=== PATIENT | female | born 2005 | race Caucasian/White ===

== ENCOUNTER 2024-04-12 22:06 | Emergency (ER) | payer OTHER ==
[2024-04-12] MEDS ORDERED: NA CHLORIDE 0.9% 1,000 ML ONE (23:20)
[2024-04-12] MEDS ORDERED: ACETAMINOPHEN 325 MG TABLET ONE (23:20)
[2024-04-12 23:33] LABS: Specific Gravity 1.016 (1.005-1.030)
[2024-04-12 23:37] LABS: Urine Bacteria <20 /HPF (<20); Urine Culture Reflex Order REFLEXED; Urine Microscopic Reflex YN ORDER UMIC; Urine Mucus Slight /HPF (None Seen); Urine RBC <5 /HPF (None Seen)
[2024-04-12 23:38] LABS: Specific Gravity 1.016 (1.005-1.030); Urine Bilirubin NEGATIVE (Negative); Urine Blood Negative (Negative); Urine Clarity Extremely Turbid (Clear); Urine Color Light-Yellow (Yellow); Urine Glucose NEGATIVE (Negative); Urine Ketones 1+ (Negative); Urine Nitrite NEGATIVE (Negative); Urine Protein TRACE (Negative); Urine Urobilinogen Normal (Normal); Urine pH 7.5 (5.0-7.0)
[2024-04-12 23:40] LABS: Absolute Lymphocytes (CBC) 1.6 K/uL (0.7-4.9); Absolute Monocytes 0.4 K/uL (0.1-1.3); Basophils % 0.5 % (0-1.3); Eosinophils % 0.8 % (0-4.4); Hematocrit 31.3 % (36.0-45.0); Hemoglobin 10.6 g/dL (12.0-15.0); Lymphocytes % 31.4 % (15.3-44.8); MCH 26.8 pg (27.0-35.0); MCHC 33.9 g/dL (32.0-36.0); MCV 79.2 fL (80-100); MPV 8.9 fL (7.6-11.3); Monocytes % 8.7 % (3.3-12.3); Neutrophils % 58.6 % (41.7-73.7); Nucleated Red Blood Cells % 0.1 % (0-0); Platelets 216 thou/uL (152-406); RBC Red Blood Cell Count 3.96 M/uL (3.86-4.86); Red Cell Distribution Width 18.8 % (12.1-15.2)
[2024-04-13 00:07] LABS: Anion Gap 10.4 mEq/L (5.0-15.0); Potassium 3.4 mEq/L (3.5-5.1)
--- NOTE | 2024-04-13 01:20 | RAD REPORT ---
EXAM: US , Limited CLINICAL HISTORY: The patient is 18 years old and is Female; ABD CRAMPING, TECHNIQUE: Real-time limited ultrasound of the maternal uterus with image documentation. COMPARISON: No relevant prior studies available. FINDINGS: POSITION: A single intrauterine gestation is present. Gestational age is 15 weeks 3 days based on ultrasound composite. heart rate 140 bpm. presentation is breech. PLACENTA: The placenta is posterior in location. CERVIX: The cervix is closed measuring 3.3 cm. ADNEXA: Unremarkable. No adnexal mass is seen. FREE FLUID: There is no free fluid. IMPRESSION: Single IUP at 15 weeks 3 days with heart rate 140 bpm. Electronically signed by: Waleska Varela MD 04/13/2024 01:16 AM CDT RP Due to temporary technical issues with the PACS/iGlue scribe reporting system, reports are being signed by the in-house radiologist without review as a courtesy to ensure prompt reporting the interpreting radiologist is fully responsible for the content of the report. Transcribed Date/Time: 04/13/2024 1:20 AM
[2024-04-13] MEDS ORDERED: NITROFURAN MACRO 100 MG CAP PO ONE (01:22)
[2024-04-13] MEDS ORDERED: POTASSIUM 25 MEQ EFFERV TAB ONE (01:22)
--- NOTE | 2024-04-13 01:39 | EDPHYS ---
Physician Documentation [facility] Name: Cecelia Boyd Age: 18 yrs Sex: Female : 2005 Arrival Date: 04/12/2024 Time: 22:06 Bed 6 Private MD: ED Physician Tristan Nathan HPI: 04/12 23:00 This 18 yrs old Female presents to ER via Ambulatory with complaints of EST 15 WKS cp GESTATION, Pelvic Pain, Vaginal Discharge. 23:00 The patient presents to the emergency department with abdominal pain, of the right cp upper quadrant and right lower quadrant, that started yesterday, described as crampy, vaginal discharge but does not feel like it is unusual. 23:00 course: care: private OB physician, Leakage of Fluid: none cp appreciated, Ultrasound: the patient had an ultrasound. Previous pregnancies: the patient has never been . Associated signs and symptoms: Pertinent negatives: diarrhea, fever, nausea, vomiting. 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 - Infectious Disease History:: Denies. - Social history:: Smoking status: Patient denies any tobacco usage or history of. ROS: 23:05 Constitutional: Negative for body aches, chills, fever, poor PO intake, cp 23:05 Abdomen/GI: Positive for abdominal cramps, Negative for vomiting, diarrhea, constipation, 23:05 Eyes: Negative for injury, pain, redness, and discharge, cp 23:05 ENT: Negative for drainage from ear(s), ear pain, sore throat, difficulty swallowing, difficulty handling secretions, 23:05 Cardiovascular: Negative for chest pain, edema, palpitations, 23:05 Respiratory: Negative for cough, shortness of breath, wheezing, 23:05 : Positive for vaginal discharge, Negative for urinary symptoms, vaginal bleeding, 23:05 Neuro: Negative for altered mental status, dizziness, headache, syncope, weakness, 23:05 All other systems are negative, Exam: 23:10 Constitutional: The patient appears in no acute distress, alert, awake, non-toxic, well cp developed, well nourished, 23:10 Head/Face: Normocephalic, atraumatic. cp 23:10 Eyes: Periorbital structures: appear normal, Conjunctiva: normal, no exudate, no injection, Sclera: no appreciated abnormality, Lids and lashes: appear normal, bilaterally, 23:10 ENT: External ear(s): are unremarkable, Nose: is normal, Mouth: Lips: moist, Oral mucosa: moist, Posterior pharynx: Airway: no evidence of obstruction, patent, 23:10 Chest/axilla: Inspection: normal, 23:10 Cardiovascular: Rate: normal, Rhythm: regular, 23:10 Respiratory: the patient does not display signs of respiratory distress, Respirations: normal, no use of accessory muscles, no retractions, labored breathing, is not present, 23:10 Abdomen/GI: Inspection: gravid appearance, is noted, Bowel sounds: active, all quadrants, Palpation: soft, in all quadrants, mild abdominal tenderness, in the right upper quadrant and right lower quadrant, rebound tenderness, is not appreciated, involuntary guarding, is not appreciated, 23:10 Back: CVA tenderness, is absent, 23:10 Neuro: Orientation: to person, place \T\ time. Mentation: is normal, Motor: moves all fours, strength is normal, Sensation: is normal, Gait: is steady, at a normal pace, without difficulty, Vital Signs: 22:39 BP 110 / 81; Pulse 98; Resp 14; Temp 98; Pulse Ox 98% ; Weight 48.08 kg; Height 4 ft. 9 vc1 in. ; 23:51 BP 119 / 80; Pulse 78; Resp 16; Pulse Ox 100% ; dd2 04/13 02:22 BP 112 / 75; Pulse 76; Resp 16; Temp 98.2; Pulse Ox 100% ; dd2 04/12 22:39 Body Mass Index 22.94 (48.08 kg, 144.78 cm) vc1 Emilee Coma Score: 04/12 23:51 Eye Response: spontaneous(4). Motor Response: obeys commands(6). Verbal Response: dd2 oriented(5). Total: 15. MDM: 04/13 01:39 Medical Screening Exam initiated 01:39 Data reviewed: vital signs, nurses notes, lab test result(s), radiologic studies, cp ultrasound, and as a result, I will discharge patient. 01:39 Differential diagnosis: STD, ectopic . I considered the following discharge cp prescriptions or medication management in the emergency department Medications were administered in the Emergency Department. See MAR. Counseling: I had a detailed discussion with the patient and/or guardian regarding the historical points, exam findings, and any diagnostic results supporting the discharge/admit diagnosis, lab results, radiology results, the need for outpatient follow up, an OB/Gyne specialist, to return to the emergency department if symptoms worsen or persist or if there are any questions or concerns that arise at home. Response to treatment: the patient's symptoms have mildly improved after treatment, and as a result, I will discharge patient. 04/12 22:51 Order name: Abo/rh Typing; Complete Time: 01: 04/12 22:51 Order name: Basic Metabolic Panel; Complete Time: : 04/13 01:09 Interpretation: Normal except: K 3.4; CRE 0.44. 04/12 22:51 Order name: CBC with Diff; Complete Time: : 04/13 01:09 Interpretation: Normal except: HGB 10.6; HCT 31.3; MCV 79.2; MCH 26.8; RDW 18.8. 04/12 22:51 Order name: Test, Urine; Complete Time: : 04/12 22:51 Order name: Quantitative Hcg; Complete Time: : 04/13 01:09 Interpretation: Reviewed. 04/12 22:51 Order name: Urinalysis w/ reflexes; Complete Time: 01: 04/13 01:10 Interpretation: Normal except: [facility] Extremely Turbid; UKET 1+; UPH 7.5; UPROT TRACE; cp UESTR 500; UWBC 10-20. 04/12 22:51 Order name: Lipase; Complete Time: 01: 04/12 23:43 Order name: Urine Culture EDMS 04/12 22:51 Order name: US OB Limited 04/12 22:51 Order name: IV Saline Lock; Complete Time: 23:50 cp 04/12 22:51 Order name: Labs collected and sent; Complete Time: 23:50 cp 04/12 22:51 Order name: NPO; Complete Time: 23:50 cp Administered Medications: 04/12 23:41 Drug: Acetaminophen PO 650 mg PO once Route: PO; dd2 04/13 00:11 Follow up: Response: No adverse reaction dd2 04/12 23:41 Drug: NS 0.9% IV 500 ml 500 ml IV at 1 bolus once; to be given as a bolus over 30 dd2 minutes Volume: 500 ml; Route: IV; Rate: 1 bolus; Site: right antecubital; 23:56 Follow up: Response: No adverse reaction dd2 04/13 00:56 Follow up: Response: No adverse reaction; IV Status: Completed infusion; IV Intake: dd2 1000ml 01:27 Drug: Potassium PO Effervescent Tablet 25 mEq PO once; dissolve in 4 ounces of water or al5 juice Route: PO; 01:57 Follow up: Response: No adverse reaction dd2 01:27 Drug: Nitrofurantoin PO 100 mg PO once; administer with food Route: PO; al5 01:57 Follow up: Response: No adverse reaction dd2 Disposition Summary: 04/13/24 01:39 Discharge Ordered Notes: Location: Home cp Problem: new cp Symptoms: have improved cp Condition: Stable cp Diagnosis - Other specified related conditions, second trimester cp - Abdominal pain, unspecified cp - UTI/ Urinary tract infection, site not specified cp - Hypokalemia cp Followup: cp - With: Private Physician - When: 2 - 3 days - Reason: Worsening of condition Discharge Instructions: - Discharge Summary Sheet cp - Abdominal Pain During cp - Urinary Tract Infection, Adult cp - Hypokalemia cp Forms: - Medication Reconciliation Form cp - Antibiotic Education cp - Prescription Opioid Use cp - Patient Portal Instructions cp - Leadership Thank You Letter cp Prescriptions: - Macrobid 100 mg Oral Capsule - take 1 capsule ORAL route every 12 hours for 7 days; 14 capsule; Refills: 0, cp Product Selection Permitted Addendum: 04/14/2024 11:25 I was immediately available on-site in the Emergency Department for consultation in the m s3 care of the patient. Signatures: Dispatcher [employer] EDMS Tez King PA PA cp Sims, Marcus, DO DO ms3 Angelia Fuchs RN RN vc1 Elva Le, RN RN al5 CECELIA YANCEY, RN RN dd2
--- NOTE | 2024-04-13 01:39 | ER ---
Nurse's Notes [facility] Name: Cecelia Boyd Age: 18 yrs Sex: Female : 2005 Arrival Date: 04/12/2024 Time: 22:06 Bed 6 Private MD: Diagnosis: Other specified related conditions, second trimester;Abdominal pain, unspecified;UTI/ Urinary tract infection, site not specified;Hypokalemia Presentation: 04/12 22:35 Chief complaint: Patient states: sharp pain and cramping for greater than 24hours. vc1 22:39 Coronavirus screen: Client denies travel out of the [place] in the last 14 days. At this vc1 time, the client does not indicate any symptoms associated with coronavirus-19. Ebola Screen: Patient negative for fever greater than or equal to 101.5 degrees Fahrenheit, and additional compatible Ebola Virus Disease symptoms Patient denies exposure to infectious person. Patient denies travel to an Ebola-affected area in the 21 days before illness onset. No symptoms or risks identified at this time. Initial Sepsis Screen: Does the patient meet any 2 criteria? No. Patient's initial sepsis screen is negative. Does the patient have a suspected source of infection? No. Patient's initial sepsis screen is negative. Risk Assessment: Do you want to hurt yourself or someone else? Patient reports no desire to harm self or others. Onset of symptoms was April 11, 2024. Care prior to arrival: None. 22:39 Method Of Arrival: Ambulatory vc1 22:39 Acuity: CRISTOPHER 3 vc1 Triage Assessment: 22:45 General: Appears in no apparent distress. comfortable, slender, well groomed, well vc1 developed, well nourished, Behavior is calm, cooperative, appropriate for age. Pain: Complains of pain in pelvis. EENT: No deficits noted. No signs and/or symptoms were reported regarding the EENT system. Neuro: Level of Consciousness is awake, alert, obeys commands, Oriented to person, place, time, situation, Appropriate for age. Cardiovascular: No deficits noted. Respiratory: Airway is patent Respiratory effort is even, unlabored, Respiratory pattern is regular, symmetrical. GI: No deficits noted. No signs and/or symptoms were reported involving the gastrointestinal system. : Reports vaginal discharge Denies vaginal bleeding. Derm: No deficits noted. No signs and/or symptoms reported regarding the dermatologic system. Musculoskeletal: Circulation, motion, and sensation intact. Range of motion: intact in all extremities. 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 - Infectious Disease History:: Denies. - Social history:: Smoking status: Patient denies any tobacco usage or history of. Screenin:42 [facility] ED Fall Risk Assessment (Adult) History of falling in the last 3 months, vc1 including since admission No falls in past 3 months (0 pts) Confusion or Disorientation No (0 pts) Intoxicated or Sedated No (0 pts) Impaired Gait No (0 pts) Mobility Assist Device Used No (0 pt) Altered Elimination No (0 pt) Score/Fall Risk Level 0 - 2 = Low Risk Oriented to surroundings, Maintained a safe environment, Educated pt \T\ family on fall prevention, incl call for assistance when getting out of bed. Abuse screen: Denies threats or abuse. Nutritional screening: No deficits noted. Tuberculosis screening: No symptoms or risk factors identified. Assessment: 23:51 General: Appears in no apparent distress. Behavior is calm, cooperative, appropriate dd2 for age. Pain: Complains of pain in suprapubic area, right lower quadrant and left lower quadrant Pain currently is 7 out of 10 on a pain scale. Quality of pain is described as crampy. Neuro: Level of Consciousness is awake, alert, obeys commands, Oriented to person, place, time, situation, Appropriate for age. Cardiovascular: Denies chest pain, Patient's skin is warm and dry. Respiratory: Airway is patent Respiratory effort is even, unlabored, Respiratory pattern is regular, symmetrical. GI: Abdomen is non-distended, Abd is soft and non tender Reports lower abdominal pain. : No signs and/or symptoms were reported regarding the genitourinary system. Urine is cloudy, Reports cramping, suprapubic area. EENT: No deficits noted. No signs and/or symptoms were reported regarding the EENT system. EENT:. Derm: No deficits noted. No signs and/or symptoms reported regarding the dermatologic system. Skin is healthy with good turgor. Musculoskeletal: No deficits noted. No signs and/or symptoms reported regarding the musculoskeletal system. Circulation, motion, and sensation intact. Range of motion:. Vital Signs: 22:39 BP 110 / 81; Pulse 98; Resp 14; Temp 98; Pulse Ox 98% ; Weight 48.08 kg; Height 4 ft. 9 vc1 in. ; 23:51 BP 119 / 80; Pulse 78; Resp 16; Pulse Ox 100% ; dd2 04/13 02:22 BP 112 / 75; Pulse 76; Resp 16; Temp 98.2; Pulse Ox 100% ; dd2 04/12 22:39 Body Mass Index 22.94 (48.08 kg, 144.78 cm) vc1 Emilee Coma Score: 04/12 23:51 Eye Response: spontaneous(4). Motor Response: obeys commands(6). Verbal Response: dd2 oriented(5). Total: 15. ED Course: 22:08 Patient arrived in ED. [id number] 22:11 Tez King PA is PHCP. cp 22:11 Tristan Nathan DO is Attending Physician. cp 22:41 Triage completed. vc1 22:42 Arm band placed on right wrist. vc1 22:45 Patient has correct armband on for positive identification. Bed in low position. Call vc1 light in reach. Pulse ox on. NIBP on. 22:54 CECELIA YANCEY, RN is Primary Nurse. dd2 23:20 Door closed. Noise minimized. Warm blanket given. Pillow given. Verbal reassurance dd2 given. 23:20 Initial lab(s) drawn, by me, sent to lab. Urine collected: clean catch specimen, dd2 cloudy. Inserted saline lock: 20 gauge in right antecubital area, using aseptic technique. Blood collected. Flushed with 10 mL NS. Patient maintains SpO2 saturation greater than 95% on room air. 23:51 Provided Education on: call light, medications, labs/radiology procedures and result dd2 wait times. 23:51 No provider procedures requiring assistance completed. dd2 23:54 US OB Limited In Process Unspecified. EDMS 04/13 02:22 IV discontinued, intact, bleeding controlled, No redness/swelling at site. Pressure dd2 dressing applied. Administered Medications: 04/12 23:41 Drug: Acetaminophen PO 650 mg PO once Route: PO; dd2 04/13 00:11 Follow up: Response: No adverse reaction dd2 04/12 23:41 Drug: NS 0.9% IV 500 ml 500 ml IV at 1 bolus once; to be given as a bolus over 30 dd2 minutes Volume: 500 ml; Route: IV; Rate: 1 bolus; Site: right antecubital; 23:56 Follow up: Response: No adverse reaction dd2 04/13 00:56 Follow up: Response: No adverse reaction; IV Status: Completed infusion; IV Intake: dd2 1000ml 01:27 Drug: Potassium PO Effervescent Tablet 25 mEq PO once; dissolve in 4 ounces of water or al5 juice Route: PO; 01:57 Follow up: Response: No adverse reaction dd2 01:27 Drug: Nitrofurantoin PO 100 mg PO once; administer with food Route: PO; al5 01:57 Follow up: Response: No adverse reaction dd2 Medication: 04/12 22:43 VIS not applicable for this client. vc1 Intake: 04/13 00:56 IV: 1000ml; Total: 1000ml. dd2 Outcome: 01:39 Discharge ordered by . cp 02:22 Discharged to home ambulatory, dd2 02:22 Condition: stable 02:22 Discharge instructions given to patient, Instructed on discharge instructions, follow up and referral plans. medication usage, Demonstrated understanding of instructions, follow-up care, medications, Prescriptions given X 1, 02:23 Patient left the ED. dd2 Signatures: Dispatcher [employer] EDMT Tez King PA PA cp Jeffries, Jennifer [id number] Angelia Fuchs RN RN vc1 Elva Le RN RN al5 CECELIA YANCEY RN RN dd2
[2024-04-13 08:12] VITALS: O2SAT 100
[2024-04-13 08:19] VITALS: BP 112/75; TEMP 98.2
== END 2024-04-13 02:23 | disposition home or self-care (01) ==
LOC: ER 22:06
DX: O23.42 Unspecified infection of urinary tract in pregnancy, second trimester (principal); N39.0 Urinary tract infection, site not specified; O99.282 Endocrine, nutritional and metabolic diseases complicating pregnancy, second trimester; E87.6 Hypokalemia; Z3A.15 15 weeks gestation of pregnancy
CPT/HCPCS: 87088; 85025; 81001; 87086; 80048; 36415; 86900; 81025; 86901; 84702; 83690; 76815; 96360; 99284; J7030